=== PATIENT | female | born 1995 | race Caucasian/White ===

== ENCOUNTER 2017-07-06 18:41 | Emergency (ER) | payer OTHER ==
[~2017-07-06] VITALS: Ht 157.5 cm; Wt 70.5 kg
[2017-07-06 19:14] VITALS: BP 123/88
[2017-07-06] MEDS ORDERED: LIDOCAINE HCL 1% 20 ML VIAL INJ ONE (19:15)
[2017-07-06] MEDS ORDERED: BACITRACIN 0.9 GM PACKET OINTMENT TP ONE (19:15)
[2017-07-06] MEDS ORDERED: POVIDONE-IODINE 10% 15 ML SOLUTION UD TP ONE (19:15)
[2017-07-06] MEDS ORDERED: PERTUSS(ACELL),DIPH,TET VAC/PF 0.5 ML VIAL IM ONE (19:15)
[2017-07-06] MEDS ORDERED: LIDOCAINE HCL 1% 10 ML VIAL INJ ONE (19:30)
== END 2017-07-06 20:25 | disposition home or self-care (01) ==
LOC: EMS 18:43
DX: S61.210A Laceration without foreign body of right index finger without damage to nail, initial encounter (principal); S61.216A Laceration without foreign body of right little finger without damage to nail, initial encounter; W45.8XXA Other foreign body or object entering through skin, initial encounter; Y93.89 Activity, other specified; Y92.098 Other place in other non-institutional residence as the place of occurrence of the external cause; Y99.8 Other external cause status
CPT/HCPCS: 12001; 90471; 90715; 99283; J3490